=== PATIENT | female | born 1990 | race Caucasian/White ===

== ENCOUNTER 2019-12-31 05:48 | Inpatient (IN) | payer BC ==
[~2019-12-31] VITALS: Ht 152.4 cm; Wt 86.6 kg
[~2019-12-31 05:48] MED LIST: MOTRIN600 MG PO; NORCO 10/325 TA1 TA1 PO; PRENATAL COMPLE1 TAB
[2019-12-31] MEDS ORDERED: FAMOTIDINE10 MG PO (06:21)
[2019-12-31 06:22] VITALS: BP 108/68; Ht 152.4 cm; Wt 86.6 kg
[2019-12-31 07:19] LABS: HEMOGLOBIN 11.3 g/dL (12-16); MCH 30.1 pg (26.0-34.0); MCHC 31.4 g/dL (31.0-37.0); MEAN PLATELET VOLUME 13.3 fL (7.4-10.4); RBC 3.75 10x6/uL (4.00-5.40); RDW 13.9 % (11.5-14.5); WBC 8.7 10x3/uL (4.8-10.8)
[2019-12-31 12:17] LABS: BILIRUBIN NEGATIVE (NEGATIVE); KETONE NEGATIVE (NEGATIVE); NITRITE NEGATIVE (NEGATIVE); UROBILINOGEN NORMAL (NORMAL)
[2019-12-31 12:18] LABS: WHITE CELLS - URINE 0-5 /hpf (NEGATIVE)
[2019-12-31 12:19] LABS: BACTERIA FEW /hpf (NEGATIVE); EPITHELIAL CELLS 0-5 /hpf (0-5); RED CELLS - URINE RARE /hpf (0-5)
[2019-12-31 12:33] LABS: UDS - AMPHET NEGATIVE QUAL (NEGATIVE); UDS - BARB NEGATIVE QUAL (NEGATIVE); UDS - BENZO NEGATIVE QUAL (NEGATIVE); UDS - COCAINE NEGATIVE QUAL (NEGATIVE); UDS - OPIATE NEGATIVE QUAL (NEGATIVE); UDS - PCP NEGATIVE QUAL (NEGATIVE); UDS - THC NEGATIVE QUAL (NEGATIVE)
--- NOTE | 2019-12-31 13:15 | NUR ---
TO ROOM BY BED FROM RECOVERY WITH BEDSIDE REPORT COMPLETED. VSS, RATES PAIN AT 0/10. FUNDUS FIRM AT U/1 WITH LIGHT BLEEDING NOTED. AYALA CATH TO BEDSIDE DRAIN WITH 300ML CLEAR URINE. IV TO L HAND INFUSING VIA PUMP PER ORDERS. SALINE LOCK TO RIGHT FOREARM PATENT WITH SWAB CAP IN USE, PT QUESTIONS WHEN ONE OF THE IVS COULD BE REMOVED AND STATES UNDERSTANDING AFTER BLOOD DRAW AT 1700 HAS BEEN RESULTED. DENIES NEEDS AT THIS TIME, SIDE RAILS UP X 2 WITH CALL LIGHT IN REACH.
[2019-12-31 13:16] VITALS: BP 120/69
--- NOTE | 2019-12-31 13:50 | NUR ---
CONTNIUE TO DENY PAIN. FUNDUS FIRM WITH MASSAGE AT U/1, NO CLOTS NOTED AND LIGHT-MODERATE BLEEDING. BIKINI INCISION, COVERED WITH WHITE ABD BANDAGE NOTED TO BE CLEAN AND DRY, ICE PACK PLACED OVER INCISION PER ORDERS.
--- NOTE | 2019-12-31 14:30 | NUR ---
DILAUDID GIVEN SCANNED TO EMAR. PT RATES PAIN AT 7/10. FUNDUS FIRM AT U/1 WITH MODERATE BLEEDING NOTED WITH MASSAGE, NICHO AND AYALA CARE PER RN, UNDERPAD/TOWELS CHANGED. TURNED TO RIGHT SIDE WITH PILLOWS TO HER BACK. LARGE CUP OF ICE WITH SPRITE REQUESTED. SIG OTHER AT BEDSIDE, CALL LIGHT IN REACH WITH SIDE RAILS UP X 2.
--- NOTE | 2019-12-31 14:45 | NUR ---
FUNDUS FIRM WITH MASSAGE AT U/1, NO CLOTS NOTED. NURSERY NUMBER PROVIDED SO THAT PT MAY SEE WHEN IFANT WILL BE COMING OUT TO ROOM.
--- NOTE | 2019-12-31 15:30 | NUR ---
RATES PAIN AT 05/18, PT HAS CHANGED POSITIONS AND IS ON HER BACK HOLDING INFANT AT THIS TIME. SIG OTHER AT BEDSIDE, CALL LIGHT IN REACH WITH SIDE RAILS UP X 2.
--- NOTE | 2019-12-31 17:00 | NUR ---
LARGE ICE WATER PER REQUEST. UNDERPADS CHANGED, 200ML CLEAR URINE NOTED TO AYALA CANISTER. TRANSFERED TO CRIB FROM MOM SHE REQUESTED. PT ABLE TO TURN HERSELF TO LEFT SIDE WITH HEAD OF BED LOWERED. SIDE RAILS UP X 2 WITH CALL LIGHT IN REACH.
[2019-12-31 18:04] LABS: HEMATOCRIT 33.4 % (36.0-48.0); HEMOGLOBIN 10.6 g/dL (12-16)
--- NOTE | 2019-12-31 18:15 | NUR ---
FUNDUS FIRM AT U/1 WITH LIGHT BLEEDING, NO CLOTS NOTED WITH MASSAGE. WITH ASSISTANCE FROM FOB PT BEDDING IS CHANGED, SHE IS ABLE TO ROLL FROM SIDE TO SIDE TO AID WITH THIS. AYALA AND NICHO CARE PER RN, OFFERED TO CHANGE GOWN BUT SHE REFUSES STATING SHE IS HOPING TO BE ABLE TO SHOWER LATER TONIGHT. RATES PAIN AT 4/10, UNDERSTANDS THAT PAIN MED CAN BE GIVEN AGAIN AFTER 1830 AND TO CALL OUT FOR NURSE. IN CRIB AT BEDSIDE. SIG OTHER REMAINS PRESENT. CALL LIGHT IN REACH WITH SIDE RAILS UP X 2.
--- NOTE | 2019-12-31 19:00 | NUR ---
PT REC'D IN BED AT THIS TIME. REPORT REC'D AT BEDSIDE. IV TO THE RT ARM REMOVED. UNABLE TO FLUSH. TIP INTACT. DRESSING TO ABDOMEN CDI AT THIS TIME. ICE PACK IN PLACE. RATES PAIN AT 5/10. AWNING ERECTOR OF DILAUDID STARTED AT THIS TIME. WILL CONTINUE TO MONITOR. George REBOLLEDO RN
--- NOTE | 2019-12-31 19:45 | NUR ---
PT REC'D IN BED AT THIS TIME. S/0 AT THE BEDSIDE AND SUPPORTIVE AT THIS TIME. IV TO THE LEFT HAND AT 125 ML/HR. SITE CLEAR AND PATENT. SALIINE LOCK TO THE RT HAND AT THIS TIME. LUNGS CLEAR. BS+. DRESSING TO ABDOMEN CDI. AYALA CATH PATENT WITH RON URINE NOTED AT THIS TIME. FUNDUS FIRM U/2 WITH MODERATE LOCHIA NOTED. NO DISTRESS NOTED. George REBOLLEDO RN
--- NOTE | 2019-12-31 20:15 | NUR ---
PT GIVEN ICE PACK, TURKEY TRAY, AND WATER AT THIS TIME. WILL MONITOR. George REBOLLEDO RN
--- NOTE | 2019-12-31 21:10 | NUR ---
Harry cath discontinued at this time and patient up to bathroom for hygiene. pt tolerated well at this time. 175 ml in harry cath at this time. micha jerez rn
[2020-01-01 02:37] VITALS: BP 110/56
--- NOTE | 2020-01-01 04:30 | NUR ---
PT ASLEEP AT THIS TIME. NO DISTRESS NOTED AT THIS TIME. NO COMPLAINTS AT THIS TIME. George REBOLLEDO RN
[2020-01-01 07:05] LABS: MCH 30.4 pg (26.0-34.0); MCHC 31.4 g/dL (31.0-37.0); MCV 96.7 fL (80.0-100.0); MEAN PLATELET VOLUME 13.5 fL (7.4-10.4); RBC 3.62 10x6/uL (4.00-5.40); RDW 13.8 % (11.5-14.5)
[2020-01-01 07:06] LABS: WBC 13.1 10x3/uL (4.8-10.8)
[2020-01-01 07:15] LABS: RAPID PLASMA REAGIN Non Reactive (Non Reactive)
[2020-01-01 08:50] VITALS: BP 118/61
--- NOTE | 2020-01-01 08:50 | NUR ---
SHIFT ASSESSMENT COMPLETED PER FLOWSHEET. VSS. FUNDUS FIRM, MIDLINE AND U2 WITH SMALL AMT RUBRA LOCHIA, NO CLOTS NOTED. REPORTS THAT PERCOCET IS NOT CONTROLLING PAIN AND REQUEST IUBPROFEN, STATES THAT SHE HAS HAD WITH PREVIOUS OTHER C-SECTIONS AND IT WORKED " GOOD OR BETTER" THAN NARCOTICS. EXPLAINED TO PT THAT D/T BLEEDING DURING NSAIDS WERE HELD UNTIL STABLE, WILL NOTIFY DR. GORAMN, VERBALIZES UNDERSTANDING AND APPRECIATION. DRSG TO LOWER TRANSVERSE ABD INCISION CLEAN, DRY, AND INTACT, NO DRAINAGE NOTED. PT REPORTS THAT SHE IS VOIDING AND PASSING FLATUS WITHOUT DIFFICULTY. POC DISCUSSED WITH PT AND SIGNIFICANT OTHER, BOTH VERBALIZE UNDERSTANDING AND DENY QUESTIONS. PT ENCOURAGED TO AMBULATE ON UNIT WELL, VERBALIZES UNDERSTANDING AND DENIES QUESTIONS. BED IN LOW POSITION WITH SRUP X2. CALL LIGHT AND PHONE WITHIN REACH. WILL CONTINUE TO MONITOR. REFUSES SCD'S AT THIS TIME, STATES THAT SHE IS UP AND AMBULATORY TO BR AND HAS AMBULATED IN HALLS WELL.
--- NOTE | 2020-01-01 09:01 | NUR ---
CALL PLACED TO DR. GORMAN, NO ANSWER WILL ATTEMPT TO CALL BACK.
--- NOTE | 2020-01-01 09:15 | NUR ---
CALL BACK TO UNIT REC'D FROM VERONICA, STATES THAT DR. GORMAN IS DOING A PROCEDURE. DISCUSSED ORDER FOR TORADOL. H&H GIVEN. PER VERONICA SHE WILL NOTIFY DR. GORMAN AND CONTACT UNIT WITH ORDERS.
--- NOTE | 2020-01-01 10:21 | NUR ---
C/O ABD AND INCISIONAL DISCOMFORT. PT UPDATED ON CHANGES IN POC, VERBALIZES UNDERSTANDING. TORADOL AND PERCOCET GIVEN PER ORDER AND PT REQUEST. ICE WATER PROVIDED. REFUSES SCD'S. SIGNIFICANT OTHER SUPPORTIVE AND ATTENTIVE TO PT AND NEEDS.
--- NOTE | 2020-01-01 11:17 | NUR ---
PAIN REASSESSMENT COMPLETED, 06/18. REQUESTS TO SHOWER. RN WILL RETURN TO ROOM TO ASSIST WITH SHOWER.
--- NOTE | 2020-01-01 11:23 | NUR ---
UP TO SHOWER. DRSG REMOVED PER PT WHILE IN SHOWER. LOWER TRANSVERSE ABD INCISION WELL APPROXIMATED, STERISTRIPS INTACT, NO DRAINAGE OR S/S OF INFECTION NOTED. LINENS CHANGED. GOWN PROVIDED. PT DEMONSTRATES UNDERSTANIDNG OF INCISIONAL CARE. AMBULATORY IN ROOM. DENIES NEEDS AT THIS TIME.
--- NOTE | 2020-01-01 12:49 | OP ---
PATIENT NAME: LATHA JOHNSTON MEDICAL RECORD: [id number] :89 LOCATION:[facility] D.1274 ADMISSION DATE:12/31/19 SURGEON: HAM GORMAN MD DATE OF OPERATION: 12/31/2019 PREOPERATIVE DIAGNOSES: 1. at 39 weeks' gestation. 2. History of prior section. 3. Unwanted fertility. POSTOPERATIVE DIAGNOSES: 1. at 39 weeks' gestation. 2. History of prior section. 3. Unwanted fertility. 4. Pelvic adhesions. PROCEDURES PERFORMED: 1. Repeat low transverse section. 2. Lysis of adhesions. 3. Bilateral salpingectomy. SURGEON: Ham Gorman MD RESPIRATORY SERVICES MANAGER: April Acosta. ANESTHESIA: Spinal. FINDINGS: Uterus is densely adhesed to the anterior abdominal wall from the mid body inferiorly. Both tubes and ovaries are unremarkable. delivered was a viable female, 7 pounds 7 ounces with Apgars of 8 and 9. SPECIMEN REMOVED: 1. Tubes bilaterally. 2. Placenta. SPECIMEN DISPOSITION: 1. Tubes to pathology. 2. Placenta Discarded. ESTIMATED BLOOD LOSS: 850 cc. FLUIDS: 2 liters lactated Ringer's. URINE OUTPUT: 300 cc of clear urine. COMPLICATIONS: None. DRAIN: Holley to gravity. INDICATIONS: The patient is a 29-year-old multiparous female at 39 weeks gestation with a history of prior section. The patient also has unwanted fertility. Risks, benefits as well as alternatives to tubal ligation have been described. Risks and benefits of section have been discussed. OPERATIVE REPORT [id number] LATHA JOHNSTON DESCRIPTION OF PROCEDURE: After informed consent was assured, the patient was taken to the operating room where anesthetic was obtained. The patient is now prepped and draped and assessment of the anesthetic found it to be adequate. Incision was made over the old scar, carried down to the underlying layer of the fascia, which was opened in the midline and extended laterally. The rectus bellies were dissected free superiorly and inferiorly and the peritoneum was entered sharply. Quickly dense adhesions were encountered from the mid body of the uterus inferiorly. Using Metzenbaum scissors and Bovie cautery, these were mobilized. Some invasion into the uterine serosa occurs during this dissection. Once the bladder is mobilized off the uterus and a DeLee all-purpose retractor was inserted and a low transverse hysterotomy was performed. The incision was extended in the uterus with the bandage scissors. The was delivered onto the abdomen atraumatically. The cord was doubly clamped and cut and the infant was passed to the attendant. The placenta was delivered via Crede maneuver. Cord blood samples obtained and the placenta removed from the field. The uterus was exteriorized, cleared of all clot and debris and a hysterotomy was closed in a running fashion with Vicryl stitch. The denuded surface of the uterus was initially addressed by running stitch of Vicryl from the left margin of the uterus to the midline. This was repeated on the right side. The uterus was deflected anteriorly onto the bladder blade with a sponge in the vesicouterine flap for pressure. During this time, the salpingectomy was addressed. Using 2 Devika clamps, one coming underneath the fimbria towards the cornual region of the uterus and one touching at the toe, the salpingectomy was performed on the right. Once the tube has been removed, a Abraham stitch was applied with at the lateral Devika clamp and then at the medial clamp obtaining hemostasis here. Some bleeding noted from the mesosalpinx and this was controlled with Bovie cautery. Attention was now directed to the left tube, which was elevated in similar fashion. A Devika clamp was placed across the tube surface and the mesosalpinx with the toe towards the fimbria. A matching Devika was placed touching the toe at the first clamp and the tube removed. Two Abraham stitches again are applied both lateral and medial underneath the Devika clamps and hemostasis was achieved. Uterus is inspected. The uterus was now returned to the abdomen. Inspection reveals some bleeding from the right side of the uterus. This area was portion of serosal dissection during the adhesiolysis. Pressure was applied here for 3 minutes with some improvement. There was further bleeding along the serosal edges was controlled by reapproximation of this surface with a Vicryl stitch. Pelvis was irrigated, irrigant removed and the operative field inspected and found to be hemostatic. Rivera was placed over the raw surfaces and a sheet of Interceed placed over this. The fascia was now closed with running stitch of Vicryl. Subcutaneous tissue was inspected. Bleeding vessels cauterized and skin reapproximated with subcuticular stitch. Sterile dressing and pressure dressing applied. Sponge, lap, needle counts were correct times 2 at the close of this procedure. TRANSINT:[id number] Voice Confirmation ID: [id number] DOCUMENT ID: [id number] HAM GORMAN MD at 1249 CC: [id number] DICTATION DATE: 12/31/19 1257 CABLEMAN: 12/31/19 2340 ADM IN [place] [id number] [place] [id number]
--- NOTE | 2020-01-01 13:12 | NUR ---
AMBULATORY TO DESK WITH SIGNIFICANT OTHER, REQUESTS TO AMBULATE TO VIEWING WINDOW BY JOJOY, INSTRUCTED THAT SHE COULD AMBULATE ANYWHERE ON UNIT, VERBALIZES UNDERSTANDING. STEADY GAIT NOTED. DENIES NEEDS.
--- NOTE | 2020-01-01 13:20 | MORECARE ---
CASE MANAGEMENT DISCHARGE SUMMARY PATIENT: LATHA JOHNSTON UNIT: [id number] ADM DATE: 12/31/19 AGE: 29 : [birth year] SEX: F ROOM/BED: D.1274 AUTHOR: TOBY GARCIA PHYSICIAN: REFERRING PHYSICIAN: PRASANNA GORMAN MD DATE OF SERVICE: 01/01/20 Discharge Plan Patient Name: LATHA JOHNSTON [facility] [facility] 1990 Planned Disposition: Anticipated Discharge Date: Discharge Date: Expected LOS: Initial Reviewer: [email or web address] Initial Review Date: 12/31/2019 Generated: 01/01/20 2:20 pm Patient Name: LATHA JOHNSTON Page [id number] at 1320 All edits/amendments must be made on the electronic document DICTATION DATE: 01/01/20 1320 MIGRATION AGENT: SHERRY 01/01/20 1320 RPT#: [id number] DC DATE: STATUS: ADM IN [facility] [address] [place] [address] END OF REPORT
--- NOTE | 2020-01-01 14:07 | NUR ---
AMBULATORY ON UNIT PUSHING IN OPEN CRIB. DENIES NEEDS AT THIS TIME. STEADY GAIT NOTED. SIGNIFICANT OTHER WITH PT, SUPPORTIVE AND ATTENTIVE.
[2020-01-01 14:54] VITALS: BP 116/69
--- NOTE | 2020-01-01 14:56 | NUR ---
VSS. C/O ABD AND INCISIONAL DISCOMFORT, 09/15. PERCOCET GIVEN PER ORDER AND PT REQUEST. VSS. FUNDUS FIRM, MIDLINE AND U2 WITH SMALL AMT RUBRA LOCHIA, NO CLOTS NOTED. REFUSES SCD'S. STATES THAT SHE IS GOING TO TAKE A NAP. SCD'S REFUSED. SIGNIFICANT OTHER RESTING ON COUCH AT BEDSIDE. BED IN LOW POSITION WITH SRUP X2. CALL LIGHT AND PHONE WITHIN REACH. WILL CONTINUE TO MONITOR.
--- NOTE | 2020-01-01 15:41 | NUR ---
PAIN REASSESSMENT COMPLETED. RESTING QUIETLY WITH EYES CLOSED, RESP REGULAR AND UNLABORED, NO S/S DISTRESS NOTED. BED IN LOW POSITION WITH SRUP X2. CALL LIGHT AND PHONE WITHIN REACH. REMAINS ON R SIDE.
[2020-01-01 19:29] VITALS: BP 117/69
--- NOTE | 2020-01-01 19:33 | NUR ---
ASSESSMENT COMPLETED, SEE ASSESSMENT FLOW SHEET, W/O SIGNS OF DISTRESS, IN OPEN CRIB AT BEDSIDE, FUNDUS FIRM, INCISION W/A STERI STRIPS INTACT. ICE CHIPS GIVEN. NO FURTHER NEEDS VOICED. POC DISCUSSED FOR THE NIGHT. AGREEABLE TO ROUTINE PROCEDURES
--- NOTE | 2020-01-01 20:27 | NUR ---
PT SITTING IN CHAIR, FOB HOLDING INFANT LAYING IN BED, PT EATING SNACK, DENIES NEEDS OR NEED FOR PAIN MED AT THIS TIME
--- NOTE | 2020-01-01 20:56 | NUR ---
PT AMB TO CHANGE MANAGEMENT CONSULTANT, REQUESTS PAIN MED, THIS RN AND PT TO ROOM, ADM PAIN MED PER MD ORDERS, SEE EMAR, PT DENIES FURTHER NEEDS, STATES "I THINK I'M GOING TO TAKE A LITTLE NAP WHILE SHE IS SLEEPING", FOB AT BEDSIDE
--- NOTE | 2020-01-01 22:28 | NUR ---
PT RESTING WITH EYES CLOSED, RESP QUIET, NO DISTRESS NOTED, LEFT UNDISTURBED AT THIS TIME, IN OPEN CRIB CART AND FOB AT BEDSIDE
[2020-01-02 00:03] VITALS: BP 115/63
--- NOTE | 2020-01-02 00:03 | NUR ---
PT AWAKE, HOLDING INFANT, VS OBTAINED, ADM TORADOL PO PER MD ORDERS, SEE EMAR, PT DENIES FURTHER NEEDS, FOB AT BEDSIDE
--- NOTE | 2020-01-02 02:22 | NUR ---
PT AMB TO ENGINE LATHE SET UP OPERATOR, GAIT STEADY, PT STATES "I FEEL FINE, BUT THOUGHT I BETTER WALK OUT THIS STIFFNESS, PT REQUESTED AND SERVED FRESH H20, PT STANDS AT ENGINE LATHE SET UP OPERATOR APPROX 10 MINUTES JUST CHIT CHATTING, PT DENIES FURTHER NEEDS, PT BACK TO ROOM, FOB IN ROOM WITH INFANT
--- NOTE | 2020-01-02 04:27 | NUR ---
PT RESTING WITH EYES CLOSED, RESP QUIET, NO DISTRESS NOTED, LEFT UNDISTURBED AT THIS TIME, IN OPEN CRIB CART AND FOB ASLEEP AT BEDSIDE
--- NOTE | 2020-01-02 05:25 | NUR ---
NSY NURSE REPORTS PT IS AWAKE, AND THAT PT IS
--- NOTE | 2020-01-02 06:45 | NUR ---
REPORT RECEIVED FROM MAIKOL BAJWA.
--- NOTE | 2020-01-02 07:08 | NUR ---
PT SITTING UP IN BED, HOLDING INFANT, DENIES NEEDS OR PAIN AT THIS TIME, FOB AT BEDSIDE
[2020-01-02 08:15] VITALS: BP 115/64
--- NOTE | 2020-01-02 08:15 | NUR ---
TO ROOM FOR ASSESSMENT. PT. SITTING UP IN BED EATING BREAKFAST. INFANT IN CRIB AT BEDSIDE. MALE VISITOR PRESENT. ASSESSMENT COMPLETED. SEE FLOWSHEET. PT.STATES SHE NOT PASSING GAS, BUT HAS ACTIVE BOWEL SOUNDS ALL 4 QUADS; TOLERATING REGULAR DIET WELL. VOIDING WITHOUT DIFFICULTY. NO COMPLAINTS OF PAIN AT THIS TIME.
--- NOTE | 2020-01-02 10:29 | NUR ---
ROUNDS MADE. PT SITTING UP IN BED FEEDING BABY. PT REQUESTS PAIN MEDICATION FOR CRAMPING AND INCISIONAL PAIN.
--- NOTE | 2020-01-02 11:36 | NUR ---
ROUNDS MADE. SCHEDULED TORADOL GIVEN. NO OTHER NEEDS OR CONCERNS VOICED AT THIS TIME.
--- NOTE | 2020-01-02 14:33 | NUR ---
ROUNDS MADE. PT. RESTING IN BED, LIGHTS LOW. BABY AT BEDSIDE IN OPEN CRIB. MALE VISITOR AT BEDSIDE. OFFERED PAIN MEDICATION; PT DECLINED AT THIS TIME. NO OTHER NEEDS OR CONCERNS VOICED AT THIS TIME.
--- NOTE | 2020-01-02 15:45 | NUR ---
DR. GORMAN ON UNIT FOR ROUNDS. IN TO SEE PATIENT. ORDERS RECEIVED.
[2020-01-02] MEDS ORDERED: IBUPROFEN800 MG PO ×2 (16:01)
[2020-01-02] MEDS ORDERED: PERCOCET 7.5/321 TAB PO (16:02)
--- NOTE | 2020-01-02 17:50 | NUR ---
REVIEWED DISCHARGE INSTRUCTIONS WITH PT. STATES UNDERSTANDING. PRESCRIPTIONS GIVEN. FOLLOW-UP APPPOINTMENT GIVEN FOR 01/16/20 @ [address] GORMAN.
--- NOTE | 2020-01-02 19:30 | NUR ---
PT WAS DISCHARGED HOME WITH FAMILY. SHE REFUSED THE WHEELCHAIR RIDE TO ER AND OPTED TO AMBULATE OUT. THEY WERE PICKED UP BY PT MOTHER.
--- NOTE | 2020-01-04 16:36 | MORECARE ---
CASE MANAGEMENT DISCHARGE SUMMARY PATIENT: LATHA JOHNSTON UNIT: [id number] ADM DATE: 12/31/19 AGE: 29 : [birth year] SEX: F ROOM/BED: D.1220 AUTHOR: TOBY GARCIA PHYSICIAN: REFERRING PHYSICIAN: PRASANNA GORMAN MD DATE OF SERVICE: 01/04/20 Discharge Plan Patient Name: LATHA JOHNSTON [facility] [facility] 1990 Planned Disposition: Home Anticipated Discharge Date: 01/02/20 Discharge Date: 01/02/2020 Expected LOS: 2 Initial Reviewer: [email or web address] Initial Review Date: 12/31/2019 Generated: 01/04/20 5:36 pm Last DP export: 01/01/20 12:20 p Patient Name: LATHA JOHNSTON Page [phone] at 1636 All edits/amendments must be made on the electronic document DICTATION DATE: 01/04/20 1636 ORCHARD SPRAYER: SHERRY 01/04/20 1636 RPT#: [id number] DC DATE:01/02/20 STATUS: DIS IN [facility] [address] [place] [address] END OF REPORT
== END 2020-01-02 19:30 | disposition home or self-care (01) | DRG 785 ==
LOC: D.LD 05:48 → D.WS 05:48 → D.SDCHOLD 09:00 → D.WS 01-01 18:30
PROVIDERS: ADMIT Obstetrics & Gynecology; ATTEND Obstetrics & Gynecology
PROC: 0UB70ZZ Excision of Bilateral Fallopian Tubes, Open Approach (ICD-10-PCS; 2019-12-31)
PROC: 10D00Z1 Extraction of Products of Conception, Low, Open Approach (ICD-10-PCS; principal; 2019-12-31 09:00)
DX: O34.219 Maternal care for unspecified type scar from previous cesarean delivery (principal); Z3A.39 39 weeks gestation of pregnancy; Z37.0 Single live birth; Z30.2 Encounter for sterilization; Z30.09 Encounter for other general counseling and advice on contraception; O99.89 Other specified diseases and conditions complicating pregnancy, childbirth and the puerperium; N73.6 Female pelvic peritoneal adhesions (postinfective)

== ENCOUNTER 2020-01-04 11:47 | Emergency (ER) | payer BC ==
[~2020-01-04] VITALS: Ht 152.4 cm; Wt 82.3 kg
[~2020-01-04 11:47] MED LIST changes: +FAMOTIDINE10 MG PO; +IBUPROFEN800 MG PO; +PERCOCET 7.5/321 TAB PO
[2020-01-04 11:57] VITALS: Ht 152.4 cm; Wt 82.3 kg
[2020-01-04 13:44] LABS: BASOPHILS 0.2 % (0-2); EOSINOPHILS 2.2 % (0-7); HEMATOCRIT 33.8 % (36.0-48.0); HEMOGLOBIN 10.7 g/dL (12-16); IMMATURE GRANULOCYTES 0.7 % (0-5); LYMPHOCYTES 11.7 % (15-50); MCH 30.6 pg (26.0-34.0); MCHC 31.7 g/dL (31.0-37.0); MCV 96.6 fL (80.0-100.0); MEAN PLATELET VOLUME 12.4 fL (7.4-10.4); MONOCYTES 4.5 % (2-11); NEUTROPHILS 80.7 % (40-80); PLATELET COUNT 233 10x3/uL (130-400); RDW 13.6 % (11.5-14.5); WBC 10.2 10x3/uL (4.8-10.8)
[2020-01-04 13:53] LABS: CALC OSMOLALITY 286 mosm/kg (275-300); CALCIUM 9.3 mg/dL (8.5-10.1); CARBON DIOXIDE 26.7 mmol/L (21.0-32.0); CHLORIDE - SERUM 107 mmol/L (98-107); CREATININE - SERUM 0.7 mg/dL (0.6-1.3); GLUCOSE 90 mg/dL (74-106); POTASSIUM - SERUM 3.7 mmol/L (3.5-5.1); SODIUM 144 mmol/L (136-145); UREA NITROGEN 12 mg/dL (7-18); eGFR NON AFRICAN AMERICAN > 90 mL/min (90-120)
[2020-01-04 13:58] LABS: ALBUMIN 2.5 g/dL (3.4-5.0); ALKALINE PHOSPHATASE 191 U/L (30-120); ALT (SGPT) 33 U/L (10-68); BILIRUBIN - TOTAL 0.34 mg/dL (0.2-1.3); PROTEIN - SERUM 7.3 g/dL (6.4-8.2)
[2020-01-04 15:45] VITALS: BP 166/98
[2020-01-04 15:59] LABS: BILIRUBIN NEGATIVE (NEGATIVE); KETONE NEGATIVE (NEGATIVE); NITRITE NEGATIVE (NEGATIVE); UROBILINOGEN NORMAL (NORMAL)
[2020-01-04 16:00] LABS: EPITHELIAL CELLS 0-5 /hpf (0-5); RED CELLS - URINE OCC /hpf (0-5); WHITE CELLS - URINE 0-5 /hpf (0-5)
[2020-01-04 16:01] LABS: BACTERIA FEW /hpf (NONE SEEN)
== END 2020-01-04 15:45 | disposition home or self-care (01) ==
LOC: D.ER 11:47
PROVIDERS: Emergency Medicine
DX: G44.89 Other headache syndrome (principal); G97.1 Other reaction to spinal and lumbar puncture; K21.9 Gastro-esophageal reflux disease without esophagitis